=== PATIENT | male | born 1965 ===

== ENCOUNTER 2016-11-02 08:27 | Day surgery (SDC) | payer OTHER ==
[2016-11-02 08:54] VITALS: BMI 35.6
[2016-11-02] MEDS ORDERED: Lactated Ringer's 500 ML IV ONE (09:49)
--- NOTE | 2016-11-02 10:48 | CP.SDSHP ---
Same Day Surgery H & P - History Proposed Procedure: colonoscopy Pre-Op Diagnosis: screening - Allergies Allergies: Allergies No Known Allergies Allergy (Verified 10/25/16 10:16) - Physical Exam General Appearance: NAD Vital Signs: Vital Signs 11/02/16 08:56 Temperature 98.4 F Pulse Rate 67 Respiratory 16 Rate Blood Pressure 13/75 L O2 Sat by Pulse 96 Oximetry Mental Status: Alert & Oriented x3 Neuro: WNL Heart: WNL Lungs: WNL GI: WNL - {Optional Preform as Required} Abdomen: WNL - Impression Pt. Evaluated Today:Candidate for Anesthesia & Procedure: Yes - Date & Time Date: 11/02/16 Time: 10:48 Short Stay Discharge - Short Stay Discharge Admitting Diagnosis/Reason for Visit: SCREENING Disposition: HOME/ ROUTINE
[2016-11-02] MEDS ORDERED: Propofol 10 mg/ml Inj (20 ML) ONE (10:52)
[2016-11-02] MEDS ORDERED: Midazolam 2 MG/2 ML VIAL ONE (10:52)
[2016-11-02 11:45] VITALS: O2SAT 97
[2016-11-02 12:09] VITALS: BP 122/76; PULSE 60; RESP 13; TEMP 97.6
== END 2016-11-02 12:00 | disposition home or self-care (01) ==
LOC: C.ENDO 08:27
PROVIDERS: ATTEND Internal Medicine Gastroenterology
DX: Z12.11 Encounter for screening for malignant neoplasm of colon (principal); K62.1 Rectal polyp; K64.1 Second degree hemorrhoids
CPT/HCPCS: 45388; 88305; J2250; J2704; J7120